=== PATIENT | female | born 1990 | race Two or more races ===

== ENCOUNTER 2016-11-17 06:16 | Day surgery (SDC) | payer OTHER ==
[2016-11-14 11:45] VITALS: BMI 34.3
[2016-11-17] VITALS (13 sets, daily range): BP systolic 106–122; BP diastolic 55–70; PULSE 58–93; RESP 12–21; Ht 157.5 cm; Wt 84.0 kg
[~2016-11-17] VITALS: Ht 157.5 cm; Wt 84.0 kg
[~2016-11-17 06:16] MED LIST: CEFAZOLIN 2 GM/50 ML (PMX) 50 ML IVPB ONE; SOD CHLORIDE 0.9% 1,000 ML IV ONE
[2016-11-17] MEDS ORDERED: BUPIVACAINE 0.25%/EPI (SDV) 30 ML INJ ONE (06:42)
[2016-11-17 06:59] LABS: ADD SCAN DIFF NO
[2016-11-17] MEDS ORDERED: GLYCOPYRROLATE 0.4 MG INJ ONE (07:00)
[2016-11-17] MEDS ORDERED: NEOSTIGMINE 3 MG/3 ML SYRINGE ONE (07:00)
[2016-11-17 07:01] LABS: BASOPHILS % 0.6 % (0.0-2.0); EOSINOPHILS # 0.2 10^3/ul (0.0-0.5); HEMATOCRIT 38.8 % (37.0-47.0); HEMOGLOBIN 12.9 g/dl (12.0-16.0); LYMPHOCYTES # 1.6 10^3/ul (0.8-2.9); LYMPHOCYTES % 29.4 % (15.0-51.0); MEAN CORPUSCULAR HEMOGLOBIN 30.1 pg (29.0-33.0); MEAN CORPUSCULAR HGB CONC 33.2 g/dl (32.0-37.0); MEAN CORPUSCULAR VOLUME 90.4 fl (82.0-101.0); MEAN PLATELET VOLUME 9.8 fl (7.4-10.4); MONOCYTE # 0.4 10^3/ul (0.3-0.9); NEUTROPHIL # 3.2 10^3/ul (1.6-7.5); NEUTROPHILS % 58.8 % (39.0-77.0); PLATELET COUNT 297 10^3/UL (140-415); RED BLOOD COUNT 4.29 10^6/ul (4.20-5.40); RED CELL DISTRIBUTION WIDTH 11.9 % (11.5-14.5); WHITE BLOOD COUNT 5.4 10^3/ul (4.8-10.8)
[2016-11-17] MEDS ORDERED: BUPIVACAINE 0.25%/EPI (SDV) 30 ML INJ INJ ONE (07:04)
[2016-11-17 07:09] LABS: INR 0.96; PROTIME 12.8 Sec (12.2-14.2)
[2016-11-17 07:10] LABS: PARTIAL THROMBOPLASTIN TIME 28.4 Sec (25.0-35.0)
[2016-11-17 07:31] LABS: CREATININE 0.51 mg/dl (0.44-1.00); POTASSIUM 3.9 mmol/L (3.5-5.1)
[2016-11-17 07:32] LABS: CALCIUM 9.1 mg/dl (8.4-10.2)
[2016-11-17] MEDS ORDERED: ROCURONIUM 50 MG INJ ONE (07:37)
[2016-11-17] MEDS ORDERED: PROPOFOL 20 ML ONE (07:37)
[2016-11-17] MEDS ORDERED: FENTAnyl 50 MCG/ML VIAL ONE ×2 (07:38→09:19)
[2016-11-17] MEDS ORDERED: MIDAZOLAM 1 MG/ML 2 ML INJ ONE (07:39)
[2016-11-17] MEDS ORDERED: DEXAMETHASONE 4 MG/ML 1 ML INJ ONE (07:39)
[2016-11-17] MEDS ORDERED: BUPIVACAINE 0.25% (MPF) 30 ML INJ ONE (07:39)
[2016-11-17] MEDS ORDERED: ONDANSETRON 4 MG INJ ONE (07:39)
[2016-11-17] MEDS ORDERED: CEFAZOLIN 1 GM INJ ONE (07:51)
[2016-11-17] MEDS ORDERED: TRIMETHOBENZAMIDE 100 MG/ML VIAL IM PRN (08:30)
[2016-11-17] MEDS ORDERED: EPHEDrine SULFATE 50 MG/5 ML SYG IV PRN (08:30)
[2016-11-17] MEDS ORDERED: DIPHENHYDRAMINE 50 MG INJ IV PRN (08:30)
[2016-11-17] MEDS ORDERED: FENTAnyl 50 MCG/ML VIAL IV PRN ×3 (08:30)
[2016-11-17] MEDS ORDERED: hydrALAzine 20 MG INJ IV PRN (08:30)
[2016-11-17] MEDS ORDERED: MIDAZOLAM 1 MG/ML 2 ML INJ IV PRN (08:30)
[2016-11-17] MEDS ORDERED: ONDANSETRON 4 MG INJ IV PRN ×2 (08:30→09:30)
[2016-11-17] MEDS ORDERED: LABETALOL HCL 20MG INJ IV PRN (08:30)
[2016-11-17] MEDS ORDERED: MEPERIDINE 25 MG INJ IV PRN (08:30)
[2016-11-17] MEDS ORDERED: HYDROmorphONE (0.2 MG/ML) 10ML SYG IV PRN ×3 (08:30)
--- NOTE | 2016-11-17 09:27 | OPR ---
Date/Time of Note Date/Time of Note DATE: 11/17/16 TIME: 09:22 Operative Report Procedure Date: Nov 17, 2016 Preoperative Diagnosis Cholelithiasis/chronic cholecystitis Postoperative Diagnosis Cholelithiasis/chronic cholecystitis Operation Performed Laparoscopic cholecystectomy Surgeon: NATALIA ZARAGOZA MD Anesthesia: general Anesthesiologist: Nba Henry M.D. Estimated Blood Loss: minimal Specimens Gallbladder Complications: None Pt Condition Post Procedure: stable Disposition: PACU Indications The patient is a obese 26-year-old female who presented to the office with right upper quadrant abdominal pain 1 year. The patient had clinical signs and symptoms of chronic cholecystitis and biliary colic which was confirmed via an ultrasound which showed the presence of gallstones. The patient was scheduled for laparoscopic cholecystectomy; possible open as definitive treatment to prevent further sequelae of gallstone disease which include but are not limited to: Gangrenous cholecystitis, choledocholithiasis, gallstone pancreatitis, ascending cholangitis, etc. All risks and benefits of the procedure including but not limited to: Wound infection, excessive bleeding, common bile duct injury , postoperative biliary leak, retained common bile duct stone, injury to intra- abdominal organs, conversion to open procedure etc. were all explained to the patient in full detail. She fully understood and wished to proceed with the procedure. Informed consent was therefore obtained. Operative\Procedure Findings Dense scarring of the gallbladder to the liver bed. Findings consistent with chronic cholecystitis. Choledocholithiasis Procedure Description The patient was operating room and placed supine on the operating table. Bilateral sequential compression devices were placed on both lower extremities. A dose of broad-spectrum perioperative intravenous antibiotics was given. After the induction of smooth general endotracheal anesthesia the patient's abdomen was prepped and draped in the standard surgical fashion. After performance of the surgical timeout a 5 mm incision was made in the inferior umbilicus and a Veress needle was used to access the intra-abdominal cavity atraumatically. Pneumoperitoneum was then obtained and the Veress needle was exchanged for a 5 mm trocar through which a 5 mm laparoscope was placed. Three further working ports were then placed a 12 mm port in the sub-xiphoid region and two 5 mm ports in the right upper quadrant. All port sites were anesthetized with 0.25% Marcaine with epinephrine prior to incision. Using atraumatic graspers the gallbladder was grasped and retracted superiorly and laterally exposing the area of Wilkins's pouch. Dissection was begun in this area using a combination of blunt dissection and hook electrocautery. There were dense omental adhesions and chronic inflammatory adhesions in this area which were gently dissected. The cystic duct was identified as it entered straight into the neck of the gallbladder. It was dissected free of surrounding tissues and clipped proximally and distally 3 and transected using EndoShears. Dissection was then continued posteriorly. The cystic artery was identified and dissected free of surrounding tissues. It too was clipped proximally and distally 3 and transected using EndoShears. The gallbladder was then dissected off the liver bed using electrocautery. Very dense adhesions of the gallbladder to the liver bed from prior attacks of chronic cholecystitis. The posterior portion of the gallbladder was intrahepatic. Once completely free the gallbladder was placed in an Endo Catch bag and withdrawn through the subxiphoid port site and passed off the field as specimen. Hemostasis was then inspected for and noted to be adequate. The abdomen was then irrigated with several liters of warm normal saline and the irrigant returned crystal clear. The fascial subxiphoid port site was then reapproximated using an Endo Close device and 0 Vicryl sutures. Pneumoperitoneum was then released and all remaining trochars were withdrawn under direct vision. The subcutaneous tissues were irrigated with more warm normal saline and further local anesthesia was applied around the skin of the incision sites. The skin was then reapproximated using 4-0 Monocryl sutures in subcuticular fashion. The incisions were cleaned and Dermabond was applied to the incisions and the patient was awoken from anesthesia and transported to the recovery room in stable condition. All counts were correct at the end of the case 2. NATALIA ZARAGOZA MD Nov 17, 2016 09:26
[2016-11-17] MEDS ORDERED: HYDROCODONE/APAP (5/325) TAB PO PRN ×2 (09:30)
[2016-11-17] MEDS ORDERED: morphine 2 MG INJ IV PRN (09:30)
== END 2016-11-17 12:10 | disposition home or self-care (01) ==
LOC: SDS 06:16
PROVIDERS: ATTEND Surgery
DX: K80.10 Calculus of gallbladder with chronic cholecystitis without obstruction (principal)
CPT/HCPCS: 47562; 80048; 85025; 85610; 85730; 88304; J0690; J1100; J1170; J2250; J2405; J2710; J3010; Z7512; Z7610